=== PATIENT | male | born 1990 | race Caucasian/White ===

== ENCOUNTER 2020-06-02 00:03 | Emergency (ER) | payer SELFPAY ==
--- NOTE | 2020-06-02 00:49 | EDM.PDOC ---
ED HPI GENERAL MEDICAL PROBLEM - General Chief Complaint: General Stated Complaint: MEDICAL VIA [facility] Time Seen by Provider: 06/02/20 00:39 Source of Information: Reports: Patient History Limitations: Reports: No Limitations - History of Present Illness INITIAL COMMENTS - FREE TEXT/NARRATIVE: pt had an episode while he was having a snack when he became lite headed he fell off of the chair. He does remember what was going on. Onset: Today, Sudden Duration: Hour(s): Location: Reports: Head, Generalized Associated Symptoms: Reports: Other (pt was very lite headed. ) left calf Pain Score (Numeric/FACES): 4 - Related Data Allergies Allergy/AdvReac Type Severity Reaction Status Date / Time No Known Allergies Allergy Verified 06/02/20 00:17 Home Meds: Home Meds hydrOXYzine pamoate [Hydroxyzine Pamoate] 50 mg PO QID PRN 06/02/20 [History] ziprasidone HCL [Ziprasidone HCl] 40 mg PO BID 06/02/20 [History] Past Medical History Musculoskeletal History: Reports: Fracture Psychiatric History: Reports: Psychosis Endocrine/Metabolic History: Reports: Obesity/BMI 30+ - Infectious Disease History Infectious Disease History: Reports: None - Past Surgical History Musculoskeletal Surgical History: Reports: Arthroscopic Knee, Other (See Below) Other Musculoskeletal Surgeries/Procedures:: left foot surgery Social & Family History - Tobacco Use Years of Tobacco use: 16 Packs/Tins Daily: 0.5 - Caffeine Use Caffeine Use: Reports: Coffee - Alcohol Use Days Per Week of Alcohol Use: 1 Number of Drinks Per Day: 3 Total Drinks Per Week: 3 - Recreational Drug Use Recreational Drug Use: No ED ROS GENERAL - Review of Systems Review Of Systems: See Below Constitutional: Reports: Weakness, Other (pt had a syncopal episode. ) HEENT: Reports: No Symptoms Respiratory: Reports: No Symptoms Cardiovascular: Reports: Syncope, Other (pt is running a lower bp. ) Endocrine: Reports: No Symptoms GI/Abdominal: Reports: No Symptoms : Reports: No Symptoms Musculoskeletal: Reports: No Symptoms Skin: Reports: No Symptoms ED EXAM, GENERAL - Physical Exam Exam: See Below Free Text/Narrative:: pt arrived by EMS after having an episode where he got dizzy and fell out of his chair. He had eaten fairly normal today. He had not drank alot of fluids. Exam Limited By: No Limitations General Appearance: Alert, Anxious, Other ( he thinks the medication he is on is not good for him. ) Ears: Normal TMs Nose: Normal Inspection Throat/Mouth: Normal Inspection Head: Atraumatic Neck: Normal Inspection Respiratory/Chest: No Respiratory Distress Cardiovascular: Regular Rate, Rhythm GI/Abdominal: Soft, Non-Tender (Male) Exam: Deferred Rectal (Males) Exam: Deferred Back Exam: Normal Inspection Extremities: Normal Inspection Neurological: Alert, Oriented, Normal Cognition Psychiatric: Anxious Course - Vital Signs Last Recorded V/S: Last Vital Signs Temp 35.9 C L 06/02/20 00:19 Pulse 63 06/02/20 02:50 Resp 16 06/02/20 02:50 BP 112/57 L 06/02/20 02:50 Pulse Ox 94 L 06/02/20 02:50 Orthostatic Blood Pressure [ 90/54 Standing] Orthostatic Blood Pressure [ 99/57 Sitting] Orthostatic Blood Pressure [ 96/57 Supine] - Orders/Labs/Meds Labs: Laboratory Tests 06/02/20 06/02/20 06/02/20 Range/Units 00:27 01:13 02:23 WBC 13.6 H (4.5-11.0) K/uL RBC 5.40 (4.30-5.90) M/uL Hgb 15.9 H (12.0-15.0) g/dL Hct 49.1 (40.0-54.0) % MCV 91 (80-98) fL MCH 29 (27-31) pg MCHC 32 (32-36) % Plt Count 168 (150-400) K/uL Neut % (Auto) 75 H (36-66) % Lymph % (Auto) 18 L (24-44) % [place] % (Auto) 6 (2-6) % Eos % (Auto) 1 L (2-4) % Baso % (Auto) 0 (0-1) % Sodium 141 (140-148) mmol/L Potassium 3.7 (3.6-5.2) mmol/L Chloride 104 (100-108) mmol/L Carbon Dioxide 28 (21-32) mmol/L Anion Gap 9.1 (5.0-14.0) mmol/L BUN 13 (7-18) mg/dL Creatinine 1.0 (0.8-1.3) mg/dL Est Cr Clr Drug Dosing 112.95 mL/min Estimated GFR (MDRD) > 60 (>60) Glucose 136 H (74-106) mg/dL Calcium 8.9 (8.5-10.1) mg/dL Total Bilirubin 0.4 (0.2-1.0) mg/dL AST 20 (15-37) U/L ALT 31 (12-78) U/L Alkaline Phosphatase 43 L (46-116) U/L Total Protein 7.2 (6.4-8.2) g/dL Albumin 3.9 (3.4-5.0) g/dL Globulin 3.3 (2.3-3.5) g/dL Albumin/Globulin Ratio 1.2 (1.2-2.2) Urine Color Yellow (YELLOW) Urine Appearance Clear (CLEAR) Urine pH 6.0 (5.0-8.0) Ur Specific [place] 1.025 (1.008-1.030) Urine Protein Negative (NEGATIVE) mg/dL Urine Glucose (UA) Negative (NEGATIVE) mg/dL Urine Ketones Negative (NEGATIVE) mg/dL Urine Occult Blood Negative (NEGATIVE) Urine Nitrite Negative (NEGATIVE) Urine Bilirubin Negative (NEGATIVE) Urine Urobilinogen 0.2 (0.2-1.0) EU/dL Ur Leukocyte Esterase Negative (NEGATIVE) Urine RBC 0-5 (0-5) Urine WBC Not seen (0-5) Ur Epithelial Cells Not seen Amorphous Sediment Many Urine Bacteria Not seen Urine Mucus Not seen Meds: Medications Discontinued Medications Generic Name Dose Route Start Last Admin Trade Name Freq PRN Reason Stop Dose Admin Sodium Chloride 1,000 mls @ 999 mls/hr 06/02/20 01:00 06/02/20 01:00 Normal Saline IV 999 mls/hr ASDIRECTED JESSA Administration Sodium Chloride 1,000 mls @ 999 mls/hr 06/02/20 02:15 06/02/20 02:18 Normal Saline IV 999 mls/hr ASDIRECTED JESSA Administration - Re-Assessments/Exams Free Text/Narrative Re-Assessment/Exam: 06/02/20 02:35 pt was given 2 liters of fluid and his bp was some better. He was complaining of pain in the left leg. He can not remember injuring it. He had an US of the leg which did not reveal any clots. 06/02/20 02:56 pt was somewhat dehydrated. His bp was better after hydration. Departure - Departure Time of Disposition: 02:57 Disposition: Home, Self-Care 01 Condition: Fair Clinical Impression: Dehydration, Postural hypotension - Discharge Information Instructions: Orthostatic Hypotension Referrals: Yoshi Hensley MD [Primary Care Provider] - Forms: ED Department Discharge Care Plan Goals: appt with Dr Hensley in 1 week, recheck bp, push fluids decrease geoden to 40 mg daily. Sepsis Event Note (ED) - Evaluation Sepsis Screening Result: No Definite Risk
[2020-06-02] MEDS ORDERED: Sodium Chloride 0.9% 1,000 ML IV SCH ×2 (01:00→02:15)
--- NOTE | 2020-06-02 09:11 | US ---
VL Duplex Lwr Ext Veins Ltd Lt INDICATION: pain in the left calf. FINDINGS: Ultrasound examination of the lower extremity using Doppler and compressive technique demonstrates that the common femoral, femoral, and popliteal veins are patent, and negative for thrombus. The calf veins were segmentally visualized and are negative where seen. IMPRESSION: Negative for deep venous thrombosis.
== END 2020-06-02 03:44 | disposition home or self-care (01) ==
LOC: JP.ED 00:03
DX: I95.1 Orthostatic hypotension (principal); E86.0 Dehydration; E66.9 Obesity, unspecified; F17.210 Nicotine dependence, cigarettes, uncomplicated; Z68.33 Body mass index [BMI] 33.0-33.9, adult
CPT/HCPCS: 36415; 80053; 81001; 85025; 93971-26-LT; 93971-LT; 99283; 99285-25; J7030

== ENCOUNTER 2020-08-01 05:25 | Emergency (ER) | payer SELFPAY ==
[2020-08-01] MEDS ORDERED: Ziprasidone HCl 20 MG Cap PO ONE ×2 (06:09→18:22)
[2020-08-01] MEDS ORDERED: OLANZapine 10 MG Vial IM ONE (06:16)
[2020-08-01] MEDS ORDERED: Water For Injection, Sterile 10 ML ONE (06:24)
--- NOTE | 2020-08-01 06:25 | EDM.PDOCBH ---
ED HPI GENERAL MEDICAL PROBLEM - General Chief Complaint: Behavioral/Psych Stated Complaint: HEADACHE Time Seen by Provider: 08/01/20 06:10 Source of Information: Reports: Patient, Police History Limitations: Reports: Altered Mental Status, Physical Impairment - History of Present Illness INITIAL COMMENTS - FREE TEXT/NARRATIVE: 30-year-old male brought in by police because of irrational behavior, speeding around town with his lights off, disjointed thoughts and an apparent inability to cooperate due to some type of mental illness. On arrival the patient is mildly hyperventilating, not answering questions appropriately and refusing to open his eyes. He does admit that he stopped taking his medication, then he starts rambling about some type of seizures before he falls asleep and that we should just put him out of his misery. Reviewing his records he was on 40 mg of Geodon twice daily and hydroxyzine up to 4 times daily for schizoaffective disorder and significant anxiety. He was seen in the emergency room with a syncopal episode in late May and his Geodon was decreased to 40 mg daily. A clinic note from 27 July which was just less than 1 week ago indicates they stopped the Geodon due to dizziness but it was not replaced with another medication. He now appears to be having a breakthrough schizoaffective episode. There is also a letter from his primary physician indicating he is going through a custody brunson so he is under intense stress right now which probably triggered the episode along with the lack of medication. Onset: Unknown/Unsure Associated Symptoms: Reports: Confusion, Other (Irrational thought process, disjointed thinking) Denies pain Pain Score (Numeric/FACES): 0 - Related Data Allergies Allergy/AdvReac Type Severity Reaction Status Date / Time No Known Allergies Allergy Verified 08/01/20 05:59 Home Meds: Home Meds hydrOXYzine pamoate [Hydroxyzine Pamoate] 50 mg PO QID PRN 06/02/20 [History] Past Medical History Musculoskeletal History: Reports: Fracture Psychiatric History: Reports: Psychosis, Other (See Below) Other Psychiatric History: Schizoeffective disorder Endocrine/Metabolic History: Reports: Obesity/BMI 30+ - Infectious Disease History Infectious Disease History: Reports: None - Past Surgical History Musculoskeletal Surgical History: Reports: Arthroscopic Knee, Other (See Below) Other Musculoskeletal Surgeries/Procedures:: left foot surgery Social & Family History - Tobacco Use Tobacco Use Status *Q: Never Tobacco User - Caffeine Use Caffeine Use: Reports: Coffee - Recreational Drug Use Recreational Drug Use: No ED ROS GENERAL - Review of Systems Review Of Systems: See Below (Review of systems really is unobtainable as the patient is not thinking clearly. When asked to open his eyes he raised his right arm.) ED EXAM, BEHAVIORAL HEALTH - Physical Exam Exam: See Below Exam Limited By: Altered Mental Status General Appearance: Alert Eye Exam: Bilateral Eye: PERRL Head: Atraumatic Respiratory/Chest: No Respiratory Distress, Lungs Clear Cardiovascular: Regular Rate, Rhythm Extremities: Normal Inspection Neurological: Alert, Disoriented to Place, Disoriented to Time Psychiatric: Flat Affect, Restless, Agitated Skin Exam: Warm, Dry COURSE, BEHAVIORAL HEALTH COMP - Course Vital Signs: Last Vital Signs Temp 99.1 F 08/01/20 05:47 Pulse 62 08/01/20 05:47 Resp 16 08/01/20 05:47 BP 151/84 H 08/01/20 05:47 Pulse Ox Orders, Labs, Meds: Laboratory Tests 08/01/20 08/01/20 08/01/20 Range/Units 06:21 06:21 06:38 WBC 10.3 (4.5-11.0) K/uL RBC 5.49 (4.30-5.90) M/uL Hgb 16.5 H (12.0-15.0) g/dL Hct 49.1 (40.0-54.0) % MCV 89 (80-98) fL MCH 30 (27-31) pg MCHC 34 (32-36) % Plt Count 205 (150-400) K/uL Neut % (Auto) 58 (36-66) % Lymph % (Auto) 31 (24-44) % [place] % (Auto) 10 H (2-6) % Eos % (Auto) 1 L (2-4) % Baso % (Auto) 1 (0-1) % Sodium 144 (140-148) mmol/L Potassium 3.8 (3.6-5.2) mmol/L Chloride 106 (100-108) mmol/L Carbon Dioxide 28 (21-32) mmol/L Anion Gap 10.0 (5.0-14.0) mmol/L BUN 12 (7-18) mg/dL Creatinine 0.9 (0.8-1.3) mg/dL Est Cr Clr Drug Dosing TNP Estimated GFR (MDRD) > 60 (>60) Glucose 72 L (74-106) mg/dL Calcium 9.3 (8.5-10.1) mg/dL Total Bilirubin 0.4 (0.2-1.0) mg/dL AST 11 L (15-37) U/L ALT 20 (12-78) U/L Alkaline Phosphatase 49 (46-116) U/L Total Protein 7.4 (6.4-8.2) g/dL Albumin 3.9 (3.4-5.0) g/dL Globulin 3.5 (2.3-3.5) g/dL Albumin/Globulin Ratio 1.1 L (1.2-2.2) Urine Color Yellow (YELLOW) Urine Appearance Clear (CLEAR) Urine pH 6.0 (5.0-8.0) Ur Specific [place] 1.025 (1.008-1.030) Urine Protein Negative (NEGATIVE) mg/dL Urine Glucose (UA) Negative (NEGATIVE) mg/dL Urine Ketones Negative (NEGATIVE) mg/dL Urine Occult Blood Negative (NEGATIVE) Urine Nitrite Negative (NEGATIVE) Urine Bilirubin Negative (NEGATIVE) Urine Urobilinogen 0.2 (0.2-1.0) EU/dL Ur Leukocyte Esterase Negative (NEGATIVE) Urine RBC Not seen (0-5) Urine WBC 0-5 (0-5) Ur Epithelial Cells Not seen Amorphous Sediment Rare Urine Bacteria Rare Urine Mucus Few Urine Opiates Screen (NEGATIVE) Ur Oxycodone Screen (NEGATIVE) Urine Methadone Screen (NEGATIVE) Ur Propoxyphene Screen (NEGATIVE) Ur Barbiturates Screen (NEGATIVE) Ur Tricyclics Screen (NEGATIVE) Ur Phencyclidine Scrn (NEGATIVE) Ur Amphetamine Screen (NEGATIVE) U Methamphetamines Scrn (NEGATIVE) Urine MDMA Screen (NEGATIVE) U Benzodiazepines Scrn (NEGATIVE) U Cocaine Metab Screen (NEGATIVE) U Marijuana (THC) Screen (NEGATIVE) 08/01/20 Range/Units 07:11 WBC (4.5-11.0) K/uL RBC (4.30-5.90) M/uL Hgb (12.0-15.0) g/dL Hct (40.0-54.0) % MCV (80-98) fL MCH (27-31) pg MCHC (32-36) % Plt Count (150-400) K/uL Neut % (Auto) (36-66) % Lymph % (Auto) (24-44) % [place] % (Auto) (2-6) % Eos % (Auto) (2-4) % Baso % (Auto) (0-1) % Sodium (140-148) mmol/L Potassium (3.6-5.2) mmol/L Chloride (100-108) mmol/L Carbon Dioxide (21-32) mmol/L Anion Gap (5.0-14.0) mmol/L BUN (7-18) mg/dL Creatinine (0.8-1.3) mg/dL Est Cr Clr Drug Dosing Estimated GFR (MDRD) (>60) Glucose (74-106) mg/dL Calcium (8.5-10.1) mg/dL Total Bilirubin (0.2-1.0) mg/dL AST (15-37) U/L ALT (12-78) U/L Alkaline Phosphatase (46-116) U/L Total Protein (6.4-8.2) g/dL Albumin (3.4-5.0) g/dL Globulin (2.3-3.5) g/dL Albumin/Globulin Ratio (1.2-2.2) Urine Color (YELLOW) Urine Appearance (CLEAR) Urine pH (5.0-8.0) Ur Specific [place] (1.008-1.030) Urine Protein (NEGATIVE) mg/dL Urine Glucose (UA) (NEGATIVE) mg/dL Urine Ketones (NEGATIVE) mg/dL Urine Occult Blood (NEGATIVE) Urine Nitrite (NEGATIVE) Urine Bilirubin (NEGATIVE) Urine Urobilinogen (0.2-1.0) EU/dL Ur Leukocyte Esterase (NEGATIVE) Urine RBC (0-5) Urine WBC (0-5) Ur Epithelial Cells Amorphous Sediment Urine Bacteria Urine Mucus Urine Opiates Screen Negative (NEGATIVE) Ur Oxycodone Screen Negative (NEGATIVE) Urine Methadone Screen Negative (NEGATIVE) Ur Propoxyphene Screen Negative (NEGATIVE) Ur Barbiturates Screen Negative (NEGATIVE) Ur Tricyclics Screen Negative (NEGATIVE) Ur Phencyclidine Scrn Negative (NEGATIVE) Ur Amphetamine Screen Negative (NEGATIVE) U Methamphetamines Scrn Negative (NEGATIVE) Urine MDMA Screen Negative (NEGATIVE) U Benzodiazepines Scrn Negative (NEGATIVE) U Cocaine Metab Screen Negative (NEGATIVE) U Marijuana (THC) Screen Negative (NEGATIVE) Medications Discontinued Medications Generic Name Dose Route Start Last Admin Trade Name Yoan PRN Reason Stop Dose Admin Sterile Water Confirm 08/01/20 06:24 08/01/20 06:37 Sterile Water For Injection Administered 08/01/20 06:25 2.1 mls/hr Dose Administration 10 mls @ as directed .ROUTE .STK-MED ONE Olanzapine 5 mg 08/01/20 06:16 08/01/20 06:37 Zyprexa IM 08/01/20 06:17 5 mg ONETIME ONE Administration Ziprasidone 40 mg 08/01/20 06:09 08/01/20 06:37 Geodon PO 08/01/20 06:10 40 mg ONETIME ONE Administration Ziprasidone 20 mg 08/01/20 18:22 08/01/20 18:33 Geodon PO 08/01/20 18:23 20 mg ONETIME ONE Administration Re-Assessment/Re-Exam: I calmly visited with the patient for a while discussing the importance of medication helping his thought process and he seemed somewhat receptive and agreed to take medicine and agreed to lab evaluation. However a few minutes later he suddenly screamed and started hyperventilating again, almost as if he was hallucinating. He was then given 5 mg of IM Zyprexa and will be given 40 mg of oral Geodon. CBC CMP and urine drug screen were obtained but I believe this patient's condition is purely psychiatric. He may need placement until stabilization. Care is turned over to Dr. Vigil pending the patient's responsiveness to the medications. Returned this evening for under shift and was told the patient slept all day. He was woken up to give supper and was very stable, not suicidal and thinking much more clearly. He was given 20 mg of p.o. Geodon and a prescription for 20 mg twice daily for 20 days. He needs to recheck with Dr. Hensley before the medicine runs out. He called for a ride which will meet him in the waiting room. Departure - Departure Time of Disposition: 18:41 Disposition: Home, Self-Care 01 Clinical Impression: Schizoaffective disorder Qualifiers: Schizoaffective disorder type: unspecified Qualified Code(s): F25.9 - Schizoaffective disorder, unspecified - Discharge Information Instructions: Managing Schizoaffective Disorder Referrals: Yoshi Hensley MD [Primary Care Provider] - Forms: ED Department Discharge Care Plan Goals: Restart your Geodon 20 mg twice daily as prescribed. Please recheck with Dr. Hensley in the next 3 weeks before your medication runs out. Stay hydrated. Sepsis Event Note (ED) - Evaluation Sepsis Screening Result: No Definite Risk
== END 2020-08-01 18:41 | disposition home or self-care (01) ==
LOC: JP.ED 05:25
DX: F25.9 Schizoaffective disorder, unspecified (principal); E66.9 Obesity, unspecified; Z68.32 Body mass index [BMI] 32.0-32.9, adult
CPT/HCPCS: 36415; 80053; 80305-QW; 81001; 85025; 96372; 99284; A9270-GY; J3490

== ENCOUNTER 2020-09-15 18:58 | Emergency (ER) | payer SELFPAY ==
[2020-09-15] MEDS ORDERED: Ziprasidone HCl 20 MG Cap PO ONE ×2 (19:26→19:27)
--- NOTE | 2020-09-15 19:36 | EDM.PDOC ---
ED HPI GENERAL MEDICAL PROBLEM - General Chief Complaint: General Stated Complaint: EVAL Time Seen by Provider: 09/15/20 19:10 Source of Information: Reports: Patient History Limitations: Reports: No Limitations - History of Present Illness INITIAL COMMENTS - FREE TEXT/NARRATIVE: 30-year-old male with chronic schizoaffective disorder responds well to Geodon. I saw him in July and he was acutely psychotic at that time but after injection of Zyprexa and an oral dose of Geodon he improved markedly. At that time I gave him a prescription for 3 more weeks but apparently he did not fill it because he could not afford it. He now feels he needs to get back on his medication because his "head is too open". Onset: Unknown/Unsure Associated Symptoms: Denies: Chest Pain, Fever/Chills, Headaches, Nausea/Vomiting, Shortness of Breath - Related Data Allergies Allergy/AdvReac Type Severity Reaction Status Date / Time No Known Allergies Allergy Verified 08/01/20 05:59 Home Meds: Home Meds NK [No Known Home Meds] 09/15/20 [History] Past Medical History Musculoskeletal History: Reports: Fracture Psychiatric History: Reports: Psychosis, Other (See Below) Other Psychiatric History: Schizoeffective disorder Endocrine/Metabolic History: Reports: Obesity/BMI 30+ - Infectious Disease History Infectious Disease History: Reports: None - Past Surgical History Musculoskeletal Surgical History: Reports: Arthroscopic Knee, Other (See Below) Other Musculoskeletal Surgeries/Procedures:: left foot surgery Social & Family History - Tobacco Use Tobacco Use Status *Q: Never Tobacco User - Caffeine Use Caffeine Use: Reports: Coffee, Soda, Tea - Recreational Drug Use Recreational Drug Use: No ED ROS GENERAL - Review of Systems Review Of Systems: See Below Constitutional: Denies: Fever, Chills HEENT: Reports: No Symptoms Respiratory: Denies: Shortness of Breath Cardiovascular: Denies: Chest Pain Neurological: Denies: Headache Psychiatric: Reports: Anxiety, Confusion ED EXAM, GENERAL - Physical Exam Exam: See Below Exam Limited By: No Limitations General Appearance: Alert, No Apparent Distress Eye Exam: Bilateral Eye: Normal Inspection Head: Atraumatic Respiratory/Chest: No Respiratory Distress, Lungs Clear Cardiovascular: Regular Rate, Rhythm Neurological: Alert, Oriented Psychiatric: Normal Affect, Normal Mood Skin Exam: Warm, Dry Course - Vital Signs Last Recorded V/S: Last Vital Signs Temp 98.5 F 09/15/20 19:10 Pulse 88 09/15/20 19:10 Resp 18 09/15/20 19:10 BP 155/83 H 09/15/20 19:10 Pulse Ox 99 09/15/20 19:10 - Orders/Labs/Meds Meds: Medications Discontinued Medications Generic Name Dose Route Start Last Admin Trade Name Yoan PRN Reason Stop Dose Admin Ziprasidone 20 mg 09/15/20 19:26 09/15/20 19:30 Ziprasidone Hcl 20 Mg Cap PO 09/15/20 19:27 20 mg ONETIME ONE Administration Ziprasidone 20 mg 09/15/20 19:27 09/15/20 19:39 Ziprasidone Hcl 20 Mg Cap PO 09/15/20 19:28 20 mg ONETIME ONE Administration - Re-Assessments/Exams Free Text/Narrative Re-Assessment/Exam: 09/15/20 19:34 He was given 1 oral dose of Geodon 20 mg and an extra dose for tomorrow morning. A prescription was written for 40 additional doses which he needs to fill and get further refills from Dr. Hensley. Departure - Departure Time of Disposition: 19:40 Disposition: Home, Self-Care 01 Clinical Impression: Schizoaffective disorder Qualifiers: Schizoaffective disorder type: unspecified Qualified Code(s): F25.9 - Schizoaffective disorder, unspecified - Discharge Information Instructions: Managing Schizoaffective Disorder Referrals: Yoshi Hensley MD [Primary Care Provider] - Forms: ED Department Discharge Care Plan Goals: It is very important that you take your second dose of Geodon tomorrow morning and get this prescription filled so you can stay on the medication. Please contact Dr. Hensley before you run out of medication. Sepsis Event Note (ED) - Evaluation Sepsis Screening Result: No Definite Risk - Focused Exam Vital Signs: Vital Signs Temp Pulse Resp BP Pulse Ox 09/15/20 19:10 98.5 F 88 18 155/83 H 99
== END 2020-09-15 19:40 | disposition home or self-care (01) ==
LOC: JP.ED 18:58
DX: F25.9 Schizoaffective disorder, unspecified (principal); E66.9 Obesity, unspecified; Z68.31 Body mass index [BMI] 31.0-31.9, adult
CPT/HCPCS: 99283; 99284; A9270